=== PATIENT | female | born 1990 | race Caucasian/White ===

== ENCOUNTER 2021-10-18 07:29 | Outpatient (REF) | payer BC, SELFPAY ==
[2021-10-18 09:12] LABS: MANUAL DIFF FLAG NO
[2021-10-18 09:53] LABS: Basophils Percent Auto 0.3 % (0-2); Eosinophils Percent Auto 0.5 % (0-4); Hematocrit 40.4 % (37.0-47.0); Hemoglobin 13.9 g/dl (12.0-16.0); Imm Gran Abs Auto 0.01 X10*3/uL (0.00-0.03); Imm Gran Pct Auto 0.2 % (0.0-0.4); Lymphocytes Absolute Auto 1.6 X10*3/uL (1.2-4.9); Lymphocytes Percent Auto 27.2 % (20-40); Mean Corpuscular HGB Conc 34.4 g/dl (31.0-35.0); Mean Corpuscular Hemoglobin 29.8 pg (27.0-33.0); Mean Corpuscular Volume 86.7 fL (80.0-98.0); Mean Platelet Volume 10.6 fL (9.4-12.3); Monocytes Absolute Auto 0.4 X10*3/uL (0.1-1.2); Monocytes Percent Auto 6.1 % (2-11); Neutrophils Percent Auto 65.7 % (45-73); Platelet Count 158 X10*3/uL (160-400); Red Blood Count 4.66 X10*6/uL (4.20-5.50); Red Cell Distribution Width 12.6 % (11.0-16.0)
[2021-10-18 10:32] LABS: Alanine Aminotransferase 13 U/L (0-31); Albumin Level 4.4 g/dL (3.5-5.0); Alkaline Phosphatase 55 U/L (39-117); Anion Gap 12 (12-20); Aspartate Amino Transferase 18 U/L (5-31); Bilirubin Total 0.8 mg/dL (0.0-1.0); Blood Urea Nitrogen 7 mg/dL (9-16); C Reactive Protein 0.13 mg/dL (< or = 0.50); Calcium 9.3 mg/dL (8.4-10.2); Carbon Dioxide 25 mmol/L (22-29); Chloride 106 mmol/L (96-108); Estimated Glomerular Filt Rate > 60; Glucose Random 88 mg/dL (60-115); Lipase 37 U/L (8-78); Potassium 4.3 mmol/L (3.3-5.1); Sodium 139 mmol/L (135-145); Total Protein 7.2 g/dL (6.5-8.0)
[2021-10-18 10:35] LABS: Erythrocyte Sedimentation Rate 3 MM/HR (0-20)
[2021-10-18 10:42] LABS: Thyroid Stimulating Hormone 1.51 uIU/mL (0.32-4.0)
[2021-10-20 18:11] LABS: Transglutaminase IgA <1.0 U/mL
[2021-10-25 14:21] LABS: Endomysial IgA Antibody Negative (Negative)
== END 2021-10-18 07:30 | disposition home or self-care (01) ==
LOC: HO.LAB 07:29
PROVIDERS: PCP Nurse Practitioner Gerontology; Visit Provider Physician Assistant
DX: R10.9 Unspecified abdominal pain (principal); K52.9 Noninfective gastroenteritis and colitis, unspecified
CPT/HCPCS: 36415; 80053; 83690; 84443; 85025; 85652; 86140; 86231; 86364

== ENCOUNTER 2021-10-21 13:02 | Outpatient (REF) | payer BC, SELFPAY ==
[2021-10-21 14:14] LABS: CDiff Gene PCR NEGATIVE (Negative)
[2021-10-21 14:18] LABS: Leukocytes Stool Qualitative NEGATIVE (NEGATIVE)
[2021-10-27 20:47] LABS: Calprotectin, Fecal 12 mcg/g
== END 2021-10-21 13:03 | disposition home or self-care (01) ==
LOC: HO.LNP 13:02
PROVIDERS: Visit Provider Physician Assistant
DX: R19.7 Diarrhea, unspecified (principal)
CPT/HCPCS: 83993; 87045; 87046; 87329; 87493; 89055

== ENCOUNTER → 2021-10-31 09:26 | Outpatient (BNVA) | payer BC, SELFPAY | PROVIDERS: PCP Nurse Practitioner Gerontology; Visit Provider Physician Assistant | DX: R19.7 Diarrhea, unspecified (principal); R10.9 Unspecified abdominal pain ==